=== PATIENT | male | born 1995 ===

== ENCOUNTER 2017-02-07 20:53 | Emergency (ER) | payer OTHER ==
[~2017-02-07] VITALS: Ht 175.3 cm; Wt 72.7 kg
[2017-02-07 20:56] VITALS: TEMP 36.9; Ht 175.3 cm; Wt 72.7 kg
[2017-02-07] MEDS ORDERED: SODIUM CHLORIDE 0.9% 1000ML 1,000 ML IV STA (21:09)
[2017-02-07] MEDS ORDERED: ONDANSETRON INJ 2 MG/ML 2 ML VIAL IV STA (21:09)
[2017-02-07 21:49] LABS: BASO % 0.2 %; BASO ABS # 0.02 K/uL (0-0.2); COMPLETE YES; EOS % 0.4 %; HEMATOCRIT 43.5 % (42-52); IG% 0.2 %; LYMPH % 21.7 %; LYMPH ABS # 2.06 K/uL (1.2-3.4); MEAN CELL VOLUME 81.6 fL (80-100); MEAN CORPUSCULAR HEMOGLOBIN 30.2 pg (25-34); MEAN PLATELET VOLUME 10.5 fL (7.4-10.4); MONO % 13.9 %; NEUT % 63.6 %; PLATELET COUNT 190 K/uL (130-400); RED BLOOD COUNT 5.33 M/uL (4.7-6.1)
--- NOTE | 2017-02-07 22:01 | EMERGENCY ROOM VISIT NOTE ---
History Report prepared by Roxie: Uyen Abad Under the Supervision of: Zahida MendozaO. First contact with patient: 20:59 Chief Complaint: DIARRHEA Stated Complaint: DIARRHEA AND NAUSEA History of Present Illness The patient is a 21 year old male who presents to the Emergency Room with complaints of intermittent diarrhea for the past three days. He describes his stool as green and watery. He is having about 7-8 episodes of diarrhea daily. He has not been eating very much but has been drinking Gatorade and water. The patient is also complaining of nausea and fatigue. He has not taken any medications for his symptoms, and he has not been evaluated for these symptoms. The patient denies fevers, abdominal pain, vomiting, melena, hematochezia, and swelling in his legs. He denies any recent antibiotic usage. He just returned from [place] on 01/25. No one else is sick with similar symptoms. His last bowel movement was 1 hour [employer]. Source of History: patient Onset: 3 days ago Position: abdomen Quality: other (watery, green) Timing: intermittent Associated Symptoms: + nausea, + fatigue, No fevers, No vomiting, No abdominal pain, No melena, No hematochezia Review of Systems See HPI for pertinent positives & negatives. A total of 10 systems reviewed and were otherwise negative. Past Medical & Surgical Medical Problems: (1) No significant active problems Family History Diabetes mellitus Heart disease Hypertension Kidney disease Kidney stones Social History Smoking Status: Never Smoker Smokeless Tobacco Use: No Alcohol Use: occasionally Drug Use: none Marital Status: single Housing Status: lives with roommate Occupation Status: [employer] student Current/Historical Medications No Active Prescriptions or Reported Meds Allergies Coded Allergies: No Known Allergies (Unverified , 02/07/17) Physical Exam Vital Signs Date Time Temp Pulse Resp B/P (MAP) Pulse Ox O2 Delivery O2 Flow Rate FiO2 02/08/17 00:30 72 18 134/66 99 02/07/17 23:13 69 18 123/71 99 Room Air 02/07/17 20:56 36.9 97 16 142/88 97 Room Air Physical Exam GENERAL: Patient is awake, alert, and in no acute distress. Patient is resting comfortably and showing no signs of anxiety EYES: The conjunctivae are clear. The pupils are round and reactive. EARS, NOSE, MOUTH AND THROAT: The nose is without any evidence of any deformity. Mucous membranes are moist tongue is midline NECK: The neck is nontender and supple. RESPIRATORY: Normal respiratory effort is noted there is no evidence of wheezing rhonchi or rales CARDIOVASCULAR: Regular rate and rhythm noted there no murmurs rubs or gallops normal S1 normal S2 GASTROINTESTINAL: The abdomen is soft. Bowel sounds are present in all quadrants. Abdomen is nontender MUSCULOSKELETAL/EXTREMITIES: There is no evidence of gross deformity full range of motion is noted in the hips and shoulders SKIN: There is no obvious evidence of any rash. There are no petechiae, pallor or cyanosis noted. NEUROLOGIC: Patient is awake alert and oriented x3 strength is symmetric patellar reflexes are 2+ bilaterally Medical Decision & Procedures Laboratory Results 02/07/17 21:39 Red Blood Count 5.33, Mean Corpuscular Volume 81.6, Mean Corpuscular Hemoglobin 30.2, Mean Corpuscular Hemoglobin Concent 37.0, Mean Platelet Volume 10.5, Neutrophils (%) (Auto) 63.6, Lymphocytes (%) (Auto) 21.7, Monocytes (%) (Auto) 13.9, Eosinophils (%) (Auto) 0.4, Basophils (%) (Auto) 0.2, Neutrophils # (Auto ) 6.04, Lymphocytes # (Auto) 2.06, Monocytes # (Auto) 1.32, Eosinophils # (Auto ) 0.04, Basophils # (Auto) 0.02 02/07/17 21:39 Test 02/07/17 21:39 02/07/17 22:30 White Blood Count 9.50 K/uL (4.8-10.8) Red Blood Count 5.33 M/uL (4.7-6.1) Hemoglobin 16.1 g/dL (14.0-18.0) Hematocrit 43.5 % (42-52) Mean Corpuscular Volume 81.6 fL (80-100) Mean Corpuscular Hemoglobin 30.2 pg (25-34) Mean Corpuscular Hemoglobin Concent 37.0 g/dl (32-36) Platelet Count 190 K/uL (130-400) Mean Platelet Volume 10.5 fL (7.4-10.4) Neutrophils (%) (Auto) 63.6 % Lymphocytes (%) (Auto) 21.7 % Monocytes (%) (Auto) 13.9 % Eosinophils (%) (Auto) 0.4 % Basophils (%) (Auto) 0.2 % Neutrophils # (Auto) 6.04 K/uL (1.4-6.5) Lymphocytes # (Auto) 2.06 K/uL (1.2-3.4) Monocytes # (Auto) 1.32 K/uL (0.11-0.59) Eosinophils # (Auto) 0.04 K/uL (0-0.5) Basophils # (Auto) 0.02 K/uL (0-0.2) RDW Standard Deviation 37.2 fL (36.4-46.3) RDW Coefficient of Variation 12.4 % (11.5-14.5) Immature Granulocyte % (Auto) 0.2 % Immature Granulocyte # (Auto) 0.02 K/uL (0.00-0.02) Anion Gap 7.0 mmol/L (3-11) Est Creatinine Clear Calc Drug Dose 124.1 ml/min Estimated GFR () 133.0 Estimated GFR (Non- 114.8 BUN/Creatinine Ratio 11.8 (10-20) Calcium Level 9.6 mg/dl (8.5-10.1) Total Bilirubin 0.3 mg/dl (0.2-1) Direct Bilirubin < 0.1 mg/dl (0-0.2) Aspartate Amino Transf (AST/SGOT) 15 U/L (15-37) Alanine Aminotransferase (ALT/SGPT) 22 U/L (12-78) Alkaline Phosphatase 71 U/L (45-117) Total Protein 8.3 gm/dl (6.4-8.2) Albumin 4.4 gm/dl (3.4-5.0) Lipase 73 U/L (73-393) Urine Color YELLOW Urine Appearance CLEAR (CLEAR) Urine pH 7.5 (4.5-7.5) Urine Specific [place] 1.007 (1.000-1.030) Urine Protein NEG (NEG) Urine Glucose (UA) NEG (NEG) Urine Ketones NEG (NEG) Urine Occult Blood NEG (NEG) Urine Nitrite NEG (NEG) Urine Bilirubin NEG (NEG) Urine Urobilinogen NEG (NEG) Urine Leukocyte Esterase NEG (NEG) Laboratory results per my review. Medications Administered Medications (Trade) Dose Ordered Sig/Mario Route Start Time Stop Time Status Last Admin Dose Admin Sodium Chloride 1,000 ml @ 999 mls/hr Q1H1M STAT IV 02/07/17 21:09 02/07/17 22:09 DC 02/07/17 22:01 999 MLS/HR Ondansetron HCl (Zofran Inj) 4 mg NOW STAT IV 02/07/17 21:09 02/07/17 21:11 DC 02/07/17 22:01 4 MG Ibuprofen (Motrin Tab) 600 mg NOW STAT PO 02/07/17 23:42 02/07/17 23:43 DC 02/07/17 23:49 600 MG ED Course 2058: The patient was evaluated in room A2. A complete history and physical examination were performed. 2108: Zofran 4 mg IV, NSS 1000 ml @ 999 mls/hr IV 2341: Motrin 600 mg PO 2357: I reassessed the patient at this time. He is feeling better and resting comfortably. I discussed the results and treatment plan with the patient. I answered all pertaining questions that he had. He expressed understanding and verbalized agreement. The patient will be discharged home. Medical Decision Differential diagnosis: Etiologies such as appendicitis, diverticulitis, PUD, biliary pathology, UTI, pancreatitis, obstruction, mesenteric ischemia, aortic pathology, infections, inflammatory bowel disease, renal colic, as well as others were entertained. Nursing notes reviewed. The patient is a 21-year-old male who presented to the emergency department for an evaluation of diarrhea. The patient was having multiple loose bowel movements over the last few days. He recently traveled to [place], but his symptoms did not start until approximately 10 days afterwards and I do not feel they're related to his current presentation. The patient was treated with IV fluids in the emergency department. His abdominal exam was not consistent with an acute surgical abdomen. The patient was unable to produce a stool specimen. He was encouraged to drink plenty clear liquids and continue all medications as prescribed. He was also encouraged to follow-up with his primary care physician to discuss whether or not he needed further studies done on his stool but I encouraged him to have the studies done if symptoms did not improve. He was also encouraged return the emergency apartment immediately if symptoms change worsen or the need arises. Medication Reconcilliation Current Medication List: was personally reviewed by me Blood Pressure Screening Patient's blood pressure: Normal blood pressure Impression Primary Impression: Diarrhea Scribe Attestation The scribe's documentation has been prepared under my direction and personally reviewed by me in its entirety. I confirm that the note above accurately reflects all work, treatment, procedures, and medical decision making performed by me. Departure Information Dispostion Home / Self-Care Prescriptions No Active Prescriptions or Reported Meds Referrals [facility] Forms HOME CARE DOCUMENTATION FORM, IMPORTANT VISIT INFORMATION, WORK / SCHOOL INSTRUCTIONS Patient Instructions Diarrhea, My [facility] Additional Instructions Drink plenty clear liquids. Follow-up with [facility] this week. If symptoms do not improve I would recommend further studies such as stool studies including ova and parasite testing and testing for C. difficile. Problem Qualifiers Primary Impression: Diarrhea Diarrhea type: unspecified type Qualified Codes: R19.7 - Diarrhea, unspecified
[2017-02-07 22:19] LABS: ALT/SGPT 22 U/L (12-78); AST/SGOT 15 U/L (15-37); BLOOD UREA NITROGEN 11 mg/dl (7-18); BUN/CREATININE RATIO 11.8 (10-20); CALCIUM 9.6 mg/dl (8.5-10.1); CARBON DIOXIDE 28 mmol/L (21-32); CHLORIDE 104 mmol/L (98-107); CREATININE 0.95 mg/dl (0.60-1.40); GLUCOSE 98 mg/dl (70-99); POTASSIUM 3.6 mmol/L (3.5-5.1); SODIUM 139 mmol/L (136-145)
[2017-02-07 22:21] LABS: ALKALINE PHOSPHATASE 71 U/L (45-117)
[2017-02-07 22:46] LABS: URINE APPEARANCE CLEAR (CLEAR); URINE BILIRUBIN NEG (NEG); URINE COLOR YELLOW; URINE NITRITE NEG (NEG); URINE PH 7.5 (4.5-7.5); URINE SPECIFIC GRAVITY 1.007 (1.000-1.030); UROBILINOGEN NEG (NEG)
[2017-02-07 22:49] LABS: MANUAL MICROSCOPIC REQUIRED? NO; REVIEW REQ? NO
[2017-02-07] MEDS ORDERED: IBUPROFEN 600 MG TAB PO STA (23:42)
[2017-02-08 00:30] VITALS: BP 134/66; PULSE 72; O2SAT 99
== END 2017-02-08 00:31 | disposition home or self-care (01) ==
LOC: C.EDB 20:56 → C.EDA 02-08 00:31
DX: R19.7 Diarrhea, unspecified (principal); Z83.3 Family history of diabetes mellitus; Z82.49 Family history of ischemic heart disease and other diseases of the circulatory system; Z84.1 Family history of disorders of kidney and ureter